=== PATIENT | male | born 1950 | race Two or more races ===

== ENCOUNTER → 2017-05-25 | Outpatient (CLI) | payer MEDICARE, OTHER ==
[~2017-05-25] MED LIST: BENA40TA41 PO; HYDR25TA6 PO
--- NOTE | 2017-06-16 04:36 | HKNOTE ---
DATE OF SERVICE: 05/25/2017 MAIN COMPLAINT: Pain in both knees, worse on the right side. HISTORY OF MAIN COMPLAINT: The patient took a fall about 2 months ago and landed on his right knee. The knee was very swollen and he was in quite severe pain for a few days. The pain has continued since that time. The patient had operative arthroscopy of the left knee 20 years ago. PRESENT COMPLAINTS: Right knee. No locking, occasional instability. Before the fall, the knee was normal. Left knee. No swelling. No locking and no instability. The patient gets pain from time to time. The patient's pain is mostly mild and is aggravated by walking, weightbearing, and stair climbing. He does get rest pain, but not night pain. He takes glucosamine, and he is not sure if it helps. He can only walk about a block without stopping. He is not using a walking aid. He does not limp. He does not have a shoe lift. He can clip his toenails and tie his shoelaces. PAST ORTHOPEDIC HISTORY: Operative arthroscopy of the left knee 20 years ago. PRIOR CORTISONE INTAKE: None. ALCOHOL INTAKE: None. BLOOD TESTS FOR ARTHRITIS: None. PRIOR INJURIES TO HIPS AND KNEES: Not provided. PAST MEDICAL HISTORY: Actapresion, hypertension. PAST SURGICAL HISTORY: Arthroscopic surgery of the left knee 20 years ago. Spine surgery in 1976. MEDICATIONS: 1. Benazepril. 2. Hydrochlorothiazide. 3. Amlodipine. 4. Atorvastatin. FAMILY HISTORY: Noncontributory. SYSTEMS REVIEW: Hypertension, otherwise negative. HABITS: Patient does not smoke or drink alcoholic beverages. TELEPHONE TRIAGE NURSE: Dr. Jose Diaz, address is [facility]. PHYSICAL EXAMINATION: APPEARANCE: The patient is a fit-looking 66-year-old male. VITAL SIGNS: Height 5 foot 10, weight 190 pounds. Blood pressure 135/80, temperature 98.2. The patient's gait is antalgic, but he does not need a walking aid. HIPS: Both hips have full range of motion without pain. KNEES: Examination of the right knee, extension is full but painful. Flexion is full. 1+ effusion. Marked tenderness over the medial joint line. All ligaments appear to be intact. Patella tracks normally. Examination of the left knee, range of motion is normal, 6+ crepitus in the patella. IMAGING: Plain x-rays of the left knee obtained today at the [facility] were reviewed. These show extremely severe degenerative osteoarthritis of the medial compartment and the patellofemoral joint. Imaging of the right knee obtained today show mild narrowing of the medial compartment and the lateral joint spaces. DISCUSSION: An active 66-year-old male, who has symptoms of an internal derangement of the right knee. The x-rays of the right knee show mild narrowing of the medial and lateral compartments. The left knee shows severely degenerative changes. The patient is advised that sooner or later he will have to have a left knee replacement. His current main complaint is his right knee. MANAGEMENT: Under sterile conditions, he was given an injection of 2 cc of Kenalog and 6 cc of 2 percent lidocaine into the left knee. The patient is being referred for an MRI scan of the right knee and he will be in the seen again thereafter for re- evaluation. Dictated By: Mejia Cabrera MD /teresa/adelaide /Document#: [id number]
== END | disposition home or self-care (01) ==
LOC: HKI 15:20
DX: M25.562 Pain in left knee (principal); M25.561 Pain in right knee; I10 Essential (primary) hypertension; M17.12 Unilateral primary osteoarthritis, left knee; M23.91 Unspecified internal derangement of right knee; Z96.652 Presence of left artificial knee joint
CPT/HCPCS: 20610; G0463